=== PATIENT | male | born 1955 | race Caucasian/White ===

== ENCOUNTER → 2017-02-15 | Outpatient (CLI) | payer OTHER, MEDICAID ==
[2017-02-15 12:03] LABS: ASPARTATE AMINO TRANSFERASE 15 U/L (15-37); BLOOD UREA NITROGEN 13 mg/dL (7-18); PROSTATE SPECIFIC ANTIGEN 4.62 ng/mL (0.00-4.00)
== END | disposition home or self-care (01) ==
LOC: CFH 08:08
PROVIDERS: ATTEND Internal Medicine
DX: Z12.5 Encounter for screening for malignant neoplasm of prostate (principal); Z13.220 Encounter for screening for lipoid disorders; Z12.11 Encounter for screening for malignant neoplasm of colon; I10 Essential (primary) hypertension; D72.1 Eosinophilia; R97.20 Elevated prostate specific antigen [PSA]
CPT/HCPCS: 36415; 80053; 80061; 84153

== ENCOUNTER → 2017-06-25 | Outpatient (CLI) | payer OTHER, MEDICAID ==
[2017-06-25 12:25] LABS: ASPARTATE AMINO TRANSFERASE 16 U/L (15-37); BLOOD UREA NITROGEN 17 mg/dL (7-18)
[2017-06-25 12:31] LABS: PROSTATE SPECIFIC ANTIGEN 4.54 ng/mL (0.00-4.00)
== END | disposition home or self-care (01) ==
LOC: CFH 07:22
PROVIDERS: ATTEND Internal Medicine
DX: Z00.01 Encounter for general adult medical examination with abnormal findings (principal); Z13.220 Encounter for screening for lipoid disorders; Z12.11 Encounter for screening for malignant neoplasm of colon; Z12.5 Encounter for screening for malignant neoplasm of prostate; E78.1 Pure hyperglyceridemia; I10 Essential (primary) hypertension; D72.1 Eosinophilia; R97.20 Elevated prostate specific antigen [PSA]
CPT/HCPCS: 36415; 80053; 80061; 81003; 84153

== ENCOUNTER → 2017-11-01 | Outpatient (CLI) | payer OTHER, MEDICAID ==
[2017-11-01 12:41] LABS: BASOPHILS # (AUTO) 0.04 x10^3/uL (0-0.1); BASOPHILS % (AUTO) 1 % (0-1); EOSINOPHILS # (AUTO) 1.27 x10^3/uL (0-0.4); EOSINOPHILS % (AUTO) 16 % (1-7); LYMPHOCYTES % (AUTO) 27 % (22-44); MD NO; MEAN CORPUSCULAR HEMOGLOBIN 32.1 pg (27.5-34.5); MEAN CORPUSCULAR HGB CONC 33.8 g/dL (33.2-36.2); MEAN PLATELET VOLUME 10.4 fL (7.4-10.4); MONOCYTES # (AUTO) 0.41 x10^3/uL (0.2-0.8); MONOCYTES % (AUTO) 5 % (2-9); NEUTROPHILS # (AUTO) 3.97 x10^3/uL (1.8-6.8); NEUTROPHILS % (AUTO) 51 % (42-75); PLATELET COUNT 196 x10^3/uL (130-400); RED BLOOD COUNT 4.88 x10^6/uL (4.38-5.82); RED CELL DISTRIBUTION WIDTH 13.2 % (9.4-14.8)
[2017-11-01 13:01] LABS: CHLORIDE 107 mmol/L (98-107)
[2017-11-01 13:18] LABS: ALANINE AMINOTRANSFERASE 21 U/L (12-78); ALBUMIN 3.4 g/dL (3.4-5.0); ALKALINE PHOSPHATASE 89 U/L (45-117); ANION GAP 6 mmol/L (5-15); BILIRUBIN,TOTAL 0.4 mg/dL (0.2-1.0); CALCIUM 8.5 mg/dL (8.5-10.1); CHOL/HDL RATIO 3.4; CHOLESTEROL, TOTAL 173 mg/dL (140-239); CREATININE 0.82 mg/dL (0.7-1.3); HDL CHOL % 29 % (26-37); HDL CHOLESTEROL (DIRECT) 51 mg/dL (40-60); LDL CHOLESTEROL,CALCULATED 94 mg/dL (54-169); LDL/HDL RATIO 1.8 (0.5-3.0); TOTAL PROTEIN 7.6 g/dL (6.4-8.2); TRIGLYCERIDES 140 mg/dL (50-200); VLDL CHOLESTEROL 28 mg/dL (0-25)
== END | disposition home or self-care (01) ==
LOC: CFH 07:20
PROVIDERS: ATTEND Internal Medicine
DX: Z12.11 Encounter for screening for malignant neoplasm of colon (principal); Z13.220 Encounter for screening for lipoid disorders; E78.1 Pure hyperglyceridemia; I10 Essential (primary) hypertension; Z00.00 Encounter for general adult medical examination without abnormal findings; D72.1 Eosinophilia; R97.20 Elevated prostate specific antigen [PSA]
CPT/HCPCS: 36415; 80053; 80061; 84153; 84443; 85025

== ENCOUNTER → 2018-04-01 | Outpatient (CLI) | payer OTHER, MEDICAID ==
[2018-04-01 12:33] LABS: BASOPHILS # (AUTO) 0.03 x10^3/uL (0-0.1); BASOPHILS % (AUTO) 1 % (0-1); EOSINOPHILS # (AUTO) 1.54 x10^3/uL (0-0.4); EOSINOPHILS % (AUTO) 22 % (1-7); LYMPHOCYTES # (AUTO) 2.09 x10^3/uL (1-3.4); LYMPHOCYTES % (AUTO) 30 % (22-44); MD NO; MEAN CORPUSCULAR HEMOGLOBIN 32.3 pg (27.5-34.5); MEAN CORPUSCULAR HGB CONC 34.1 g/dL (33.2-36.2); MEAN CORPUSCULAR VOLUME 94.7 fL (81-97); MEAN PLATELET VOLUME 9.8 fL (7.4-10.4); MONOCYTES # (AUTO) 0.48 x10^3/uL (0.2-0.8); MONOCYTES % (AUTO) 7 % (2-9); NEUTROPHILS # (AUTO) 2.76 x10^3/uL (1.8-6.8); NEUTROPHILS % (AUTO) 40 % (42-75); PLATELET COUNT 225 x10^3/uL (130-400); RED BLOOD COUNT 4.86 x10^6/uL (4.38-5.82); RED CELL DISTRIBUTION WIDTH 13.5 % (9.4-14.8)
[2018-04-01 12:40] LABS: CALCIUM 8.5 mg/dL (8.5-10.1); CHLORIDE 106 mmol/L (98-107)
[2018-04-01 12:55] LABS: ALANINE AMINOTRANSFERASE 34 U/L (12-78); ALBUMIN 3.6 g/dL (3.4-5.0); ALKALINE PHOSPHATASE 95 U/L (45-117); ANION GAP 7 mmol/L (5-15); BILIRUBIN,TOTAL 0.6 mg/dL (0.2-1.0); CHOLESTEROL, TOTAL 182 mg/dL (140-239); HDL CHOL % 25 % (26-37); HDL CHOLESTEROL (DIRECT) 46 mg/dL (40-60); LDL CHOLESTEROL,CALCULATED 109 mg/dL (54-169); LDL/HDL RATIO 2.4 (0.5-3.0); TOTAL PROTEIN 7.3 g/dL (6.4-8.2); TRIGLYCERIDES 133 mg/dL (50-200); VLDL CHOLESTEROL 27 mg/dL (0-25)
== END | disposition home or self-care (01) ==
LOC: CFH 06:44
PROVIDERS: ATTEND Nurse Practitioner Primary Care
DX: Z13.220 Encounter for screening for lipoid disorders (principal); Z12.11 Encounter for screening for malignant neoplasm of colon; Z12.5 Encounter for screening for malignant neoplasm of prostate; E78.1 Pure hyperglyceridemia; I10 Essential (primary) hypertension; D72.1 Eosinophilia; R97.20 Elevated prostate specific antigen [PSA]
CPT/HCPCS: 36415; 80053; 80061; 84153; 84443; 85025

== ENCOUNTER → 2018-07-12 | Outpatient (CLI) | payer OTHER, MEDICAID ==
[2018-07-12 12:43] LABS: CHLORIDE 104 mmol/L (98-107)
[2018-07-12 12:51] LABS: ALANINE AMINOTRANSFERASE 37 U/L (12-78); ALBUMIN 3.6 g/dL (3.4-5.0); ALKALINE PHOSPHATASE 124 U/L (45-117); ANION GAP 8 mmol/L (5-15); BILIRUBIN,TOTAL 0.5 mg/dL (0.2-1.0); CALCIUM 8.8 mg/dL (8.5-10.1); CHOL/HDL RATIO 4.7; CHOLESTEROL, TOTAL 174 mg/dL (140-239); CREATININE 0.97 mg/dL (0.7-1.3); HDL CHOL % 21 % (26-37); HDL CHOLESTEROL (DIRECT) 37 mg/dL (40-60); TOTAL PROTEIN 7.7 g/dL (6.4-8.2); TRIGLYCERIDES 522 mg/dL (50-200)
== END | disposition home or self-care (01) ==
LOC: CFH 07:30
PROVIDERS: ATTEND Internal Medicine
DX: Z00.01 Encounter for general adult medical examination with abnormal findings (principal); Z12.11 Encounter for screening for malignant neoplasm of colon; Z13.220 Encounter for screening for lipoid disorders; Z12.5 Encounter for screening for malignant neoplasm of prostate; E78.1 Pure hyperglyceridemia; I10 Essential (primary) hypertension; D72.1 Eosinophilia; R97.20 Elevated prostate specific antigen [PSA]; B34.9 Viral infection, unspecified
CPT/HCPCS: 36415; 80053; 80061

== ENCOUNTER 2018-09-26 06:18 | Day surgery (SDC) | payer OTHER, MEDICAID ==
[~2018-09-26] VITALS: Ht 165.1 cm; Wt 74.0 kg
[2018-09-26 06:51] VITALS: BP 151/84
[2018-09-26] MEDS ORDERED: LACTATED RINGERS 1,000 ML IV SCH (06:51)
[2018-09-26] MEDS ORDERED: NO MEDS PER PT (07:02)
[2018-09-26] MEDS ORDERED: BP MEDICATION PO (07:11)
[2018-09-26] MEDS ORDERED: CHOLESTEROL MED PO (07:12)
[2018-09-26 07:35] LABS: BASOPHILS # (AUTO) 0.03 x10^3/uL (0-0.1); BASOPHILS % (AUTO) 1 % (0-1); EOSINOPHILS # (AUTO) 1.07 x10^3/uL (0-0.4); EOSINOPHILS % (AUTO) 17 % (1-7); LYMPHOCYTES # (AUTO) 1.55 x10^3/uL (1-3.4); LYMPHOCYTES % (AUTO) 25 % (22-44); MD NO; MEAN CORPUSCULAR HEMOGLOBIN 32.3 pg (27.5-34.5); MEAN CORPUSCULAR VOLUME 94.8 fL (81-97); MEAN PLATELET VOLUME 9.6 fL (7.4-10.4); MONOCYTES # (AUTO) 0.44 x10^3/uL (0.2-0.8); MONOCYTES % (AUTO) 7 % (2-9); NEUTROPHILS # (AUTO) 3.24 x10^3/uL (1.8-6.8); NEUTROPHILS % (AUTO) 51 % (42-75); PLATELET COUNT 194 x10^3/uL (130-400); RED BLOOD COUNT 4.52 x10^6/uL (4.38-5.82); RED CELL DISTRIBUTION WIDTH 13.1 % (9.4-14.8)
[2018-09-26 07:45] LABS: ANION GAP 8 mmol/L (5-15); CALCIUM 8.2 mg/dL (8.5-10.1); CHLORIDE 109 mmol/L (98-107); CREATININE 0.85 mg/dL (0.7-1.3)
[2018-09-26] MEDS ORDERED: FENTANYL PF 250 MCG/5ML ONE (07:48)
[2018-09-26] MEDS ORDERED: MIDAZOLAM 1 MG/ML, 2ML ONE (07:48)
[2018-09-26] MEDS ORDERED: GLYCOPYRROLATE 0.2MG/1ML, 5ML ONE (07:51)
[2018-09-26] MEDS ORDERED: ONDANSETRON 2MG/ML, 2ML ONE (07:51)
[2018-09-26] MEDS ORDERED: NEOSTIGMINE 1 MG/ML, 10ML ONE (07:51)
[2018-09-26] MEDS ORDERED: CEFAZOLIN 1,000 MG ONE (07:51)
[2018-09-26] MEDS ORDERED: PROPOFOL 10 MG/ML, 20ML ONE (07:51)
[2018-09-26] MEDS ORDERED: ROCURONIUM 10MG/ML,5ML ONE (07:51)
[2018-09-26] MEDS ORDERED: DEXAMETHASONE 4 MG/ML, 1ML ONE (07:51)
[2018-09-26] MEDS ORDERED: COCAINE TOPICAL SOLN 4%, 4ML ONE (08:23)
[2018-09-26] MEDS ORDERED: LIDOCAINE 1%-EPI 1:100K, 30ML ONE (08:23)
[2018-09-26] MEDS ORDERED: MUPIROCIN OINT 2%, 22GM ONE (08:23)
[2018-09-26] MEDS ORDERED: OXYMETAZOLINE NASAL SPRAY 0.05%, 15ML ONE (08:24)
[2018-09-26] MEDS ORDERED: FENTANYL PF 100 MCG/2ML IV PRN (08:30)
[2018-09-26] MEDS ORDERED: MEPERIDINE/PF 25MG/0.5ML IVPush PRN (08:30)
[2018-09-26] MEDS ORDERED: ONDANSETRON 2MG/ML, 2ML IV PRN (08:30)
[2018-09-26] MEDS ORDERED: ONDANSETRON ODT 8 MG PO PRN (08:30)
[2018-09-26] MEDS ORDERED: OXYcodone 5 MG/5 ML ORAL.SOL UDC PO PRN (08:30)
[2018-09-26] MEDS ORDERED: hydrALAzine 20 MG/ML, 1ML IV PRN (08:30)
[2018-09-26] MEDS ORDERED: ACETAMINOPHEN 325 MG TABLET PO PRN (08:30)
[2018-09-26] MEDS ORDERED: HYDROmorphone 2 MG/ML, 1ML IVPush PRN (08:30)
[2018-09-26] MEDS ORDERED: PROMETHAZINE 25 MG SUPP PR PRN (08:30)
[2018-09-26] MEDS ORDERED: PROMETHAZINE 25 MG/ML, 1ML IM PRN ×2 (08:30)
[2018-09-26] MEDS ORDERED: MORPHINE SULFATE 4 MG/ML, 1ML IVPush PRN (08:30)
[2018-09-26] MEDS ORDERED: PROMETHAZINE 12.5 MG SUPP PR PRN (08:30)
[2018-09-26] MEDS ORDERED: LABETALOL 5MG/ML, 20ML IV PRN (08:30)
[2018-09-26] MEDS ORDERED: PROMETHAZINE 25 MG/ML, 1ML IV PRN (08:30)
[2018-09-26] MEDS ORDERED: OXYcodone 5 MG/5 ML ORAL.SOL UDC ONE (09:42)
[2018-09-26] MEDS ORDERED: LABETALOL 20 MG/4 ML ONE (09:55)
[2018-09-26] MEDS ORDERED: hydrALAzine 20 MG/ML, 1ML ONE (10:14)
== END 2018-09-26 11:30 | disposition home or self-care (01) ==
LOC: OUT 06:18
PROVIDERS: ATTEND Otolaryngology Facial Plastic Surgery
DX: J34.3 Hypertrophy of nasal turbinates (principal); J34.89 Other specified disorders of nose and nasal sinuses; J33.9 Nasal polyp, unspecified; I10 Essential (primary) hypertension
CPT/HCPCS: 30140; 36415; 71045; 80048; 85025; 88305; 93005; J0360; J1100; J2250; J2405; J2704; J2710; J3010; J3490; J7120; J0690

== ENCOUNTER 2018-11-14 07:26 | Outpatient (CLI) | payer OTHER, MEDICAID ==
[~2018-11-14 07:26] MED LIST: BP MEDICATION PO; CHOLESTEROL MED PO; NO MEDS PER PT
[2018-11-14 12:48] LABS: ALANINE AMINOTRANSFERASE 27 U/L (12-78); ALBUMIN 3.5 g/dL (3.4-5.0); ANION GAP 4 mmol/L (5-15); CALCIUM 8.7 mg/dL (8.5-10.1); CHLORIDE 110 mmol/L (98-107)
[2018-11-14 12:51] LABS: ALKALINE PHOSPHATASE 91 U/L (45-117); BILIRUBIN,TOTAL 0.3 mg/dL (0.2-1.0); CHOL/HDL RATIO 3.9; CHOLESTEROL, TOTAL 184 mg/dL (140-239); CREATININE 0.86 mg/dL (0.7-1.3); HDL CHOL % 26 % (26-37); HDL CHOLESTEROL (DIRECT) 47 mg/dL (40-60); LDL CHOLESTEROL,CALCULATED 103 mg/dL (54-169); LDL/HDL RATIO 2.2 (0.5-3.0); TOTAL PROTEIN 7.2 g/dL (6.4-8.2); TRIGLYCERIDES 169 mg/dL (50-200); VLDL CHOLESTEROL 34 mg/dL (0-25)
== END 2018-11-14 23:59 | disposition home or self-care (01) ==
LOC: CFH 07:26
PROVIDERS: ATTEND Internal Medicine
DX: Z13.220 Encounter for screening for lipoid disorders (principal); Z12.11 Encounter for screening for malignant neoplasm of colon; Z12.5 Encounter for screening for malignant neoplasm of prostate; E78.1 Pure hyperglyceridemia; I10 Essential (primary) hypertension; D72.1 Eosinophilia; R97.20 Elevated prostate specific antigen [PSA]; B34.9 Viral infection, unspecified
CPT/HCPCS: 36415; 80053; 80061

== ENCOUNTER → 2018-12-06 | Outpatient (CLI) | payer OTHER, MEDICAID | END | disposition home or self-care (01) | LOC: CFH 10:06 | PROVIDERS: ATTEND Nurse Practitioner Primary Care | DX: Z04.1 Encounter for examination and observation following transport accident (principal); Z13.220 Encounter for screening for lipoid disorders; Z12.11 Encounter for screening for malignant neoplasm of colon; R07.89 Other chest pain; D72.1 Eosinophilia; E78.1 Pure hyperglyceridemia; R97.20 Elevated prostate specific antigen [PSA]; Z87.891 Personal history of nicotine dependence; V43.51XA Car driver injured in collision with sport utility vehicle in traffic accident, initial encounter; Y93.89 Activity, other specified; Y92.488 Other paved roadways as the place of occurrence of the external cause; Y99.8 Other external cause status | CPT/HCPCS: 71046 ==

== ENCOUNTER → 2019-09-25 | Outpatient (CLI) | payer OTHER ==
[2019-09-25 12:55] LABS: BASOPHILS # (AUTO) 0.03 x10^3/uL (0-0.1); BASOPHILS % (AUTO) 1 % (0-1); EOSINOPHILS # (AUTO) 1.43 x10^3/uL (0-0.4); EOSINOPHILS % (AUTO) 21 % (1-7); LYMPHOCYTES % (AUTO) 25 % (22-44); MD NO; MEAN CORPUSCULAR HEMOGLOBIN 32.9 pg (27.5-34.5); MEAN CORPUSCULAR HGB CONC 33.4 g/dL (33.2-36.2); MEAN CORPUSCULAR VOLUME 98.5 fL (81-97); MEAN PLATELET VOLUME 10.2 fL (7.4-10.4); MONOCYTES # (AUTO) 0.38 x10^3/uL (0.2-0.8); MONOCYTES % (AUTO) 6 % (2-9); NEUTROPHILS # (AUTO) 3.38 x10^3/uL (1.8-6.8); NEUTROPHILS % (AUTO) 49 % (42-75); PLATELET COUNT 215 x10^3/uL (130-400); RED BLOOD COUNT 4.95 x10^6/uL (4.38-5.82); RED CELL DISTRIBUTION WIDTH 13.3 % (9.4-14.8)
[2019-09-25 13:02] LABS: MICROSCOPIC AUTO
[2019-09-25 13:04] LABS: CULTURE INDICATED? NO
[2019-09-25 13:11] LABS: ALANINE AMINOTRANSFERASE 34 U/L (12-78); ALBUMIN 3.5 g/dL (3.4-5.0); ANION GAP 7 mmol/L (5-15); CALCIUM 8.6 mg/dL (8.5-10.1); CHLORIDE 110 mmol/L (98-107)
[2019-09-25 13:22] LABS: ALKALINE PHOSPHATASE 98 U/L (45-117); BILIRUBIN,TOTAL 0.4 mg/dL (0.2-1.0); CHOL/HDL RATIO 4.5; CHOLESTEROL, TOTAL 215 mg/dL (140-239); CREATININE 0.93 mg/dL (0.7-1.3); HDL CHOL % 22 % (26-37); HDL CHOLESTEROL (DIRECT) 48 mg/dL (40-60); LDL CHOLESTEROL,CALCULATED 126 mg/dL (54-169); LDL/HDL RATIO 2.6 (0.5-3.0); PSA SCREEN 7.61 ng/mL (0.00-4.00); TOTAL PROTEIN 7.7 g/dL (6.4-8.2); TRIGLYCERIDES 203 mg/dL (50-200); VLDL CHOLESTEROL 41 mg/dL (0-25)
== END | disposition home or self-care (01) ==
LOC: CFH 07:44
PROVIDERS: ATTEND Internal Medicine
DX: Z12.5 Encounter for screening for malignant neoplasm of prostate (principal); Z13.220 Encounter for screening for lipoid disorders; Z12.11 Encounter for screening for malignant neoplasm of colon; D72.1 Eosinophilia; I10 Essential (primary) hypertension; E78.1 Pure hyperglyceridemia; B34.9 Viral infection, unspecified
CPT/HCPCS: 36415; 80053; 80061; 81001; 84443; 85025; G0103